=== PATIENT | male | born 1980 | race Caucasian/White ===

== ENCOUNTER 2017-07-28 13:10 | Observation (INO) | payer BC ==
[2017-07-28] MEDS ORDERED: ASPIRIN 81 MG PO STA (13:59)
[2017-07-28] MEDS ORDERED: NITROGLYCERIN OINT 1 INCH/GM PACKET TOPICAL STA (13:59)
--- NOTE | 2017-07-28 14:01 | ED ---
General Adult HPI - General Chief complaint: Chest Pain Stated complaint: heartburn, chest discomfort Time Seen by Provider: 07/28/17 13:26 Source: patient, RN notes reviewed Mode of arrival: wheelchair Limitations: no limitations - History of Present Illness Initial comments: Patient is a pleasant 36-year-old male presenting to the emergency Department with chest discomfort. Onset was last night. Patient took Zantac and Tums without much improvement. Symptoms have been waxing and waning. Discomfort is mild at this time. Discomfort feels like indigestion. No associated dyspnea, nausea, or diaphoresis. - Related Data Home Medications Medication Instructions Recorded Confirmed Cetirizine HCl [Zyrtec] 10 mg PO DAILY PRN 12/19/15 07/28/17 Ranitidine HCl [Zantac] 150 mg PO BID PRN 07/28/17 07/28/17 Allergies Allergy/AdvReac Type Severity Reaction Status Date / Time No Known Allergies Allergy Verified 07/28/17 13:36 Review of Systems ROS Statement: Those systems with pertinent positive or pertinent negative responses have been documented in the HPI. ROS Other: All systems not noted in ROS Statement are negative. Constitutional: Denies: fever Eyes: Denies: eye pain ENT: Denies: ear pain Respiratory: Denies: cough, dyspnea Cardiovascular: Reports: chest pain Endocrine: Denies: fatigue Gastrointestinal: Denies: abdominal pain, nausea, vomiting Genitourinary: Denies: dysuria Musculoskeletal: Denies: back pain Skin: Denies: rash Neurological: Denies: weakness Past Medical History Past Medical History: Asthma History of Any Multi-Drug Resistant Organisms: None Reported Past Surgical History: Adenoidectomy Past Psychological History: No Psychological Hx Reported Smoking Status: Former smoker Past Alcohol Use History: Occasional Past Drug Use History: None Reported General Exam Limitations: no limitations General appearance: alert, in no apparent distress Head exam: Present: atraumatic Eye exam: Present: normal appearance, PERRL ENT exam: Present: normal oropharynx Neck exam: Present: normal inspection Respiratory exam: Present: normal lung sounds bilaterally. Absent: chest wall tenderness Cardiovascular Exam: Present: regular rate, normal rhythm Expanded Peripheral pulses: 2+: Radial (R), Radial (L), Dorsalis Pedis (R), Dorsalis Pedis (L) GI/Abdominal exam: Present: soft. Absent: distended, tenderness Extremities exam: Present: normal inspection. Absent: pedal edema, calf tenderness Neurological exam: Present: alert Psychiatric exam: Present: normal affect, normal mood Skin exam: Present: normal color Course Vital Signs 07/28/17 07/28/17 13:11 15:17 Temperature 97.3 F L Pulse Rate 59 L 67 Respiratory 16 17 Rate Blood Pressure 142/80 115/55 O2 Sat by Pulse 100 100 Oximetry EKG Findings - EKG Comments: EKG Findings:: Sinus bradycardia 58. AK 188. QRS 98. QT 396. QTc 38. Normal axis. Normal QRS. No acute ST change. Medical Decision Making - Medical Decision Making Patient reevaluated and resting comfortably in bed. Patient updated on results and plan. Case was discussed in detail with Dr. Shelby, who will admit his patient. - Lab Data Result diagrams: 07/28/17 13:57 07/28/17 13:57 Lab Results 07/28/17 07/28/17 07/28/17 Range/Units 13:57 13:57 13:57 WBC 6.5 (3.8-10.6) k/uL RBC 4.95 (4.30-5.90) m/uL Hgb 14.6 (13.0-17.5) gm/dL Hct 44.6 (39.0-53.0) % MCV 90.1 (80.0-100.0) fL MCH 29.5 (25.0-35.0) pg MCHC 32.7 (31.0-37.0) g/dL RDW 12.8 (11.5-15.5) % Plt Count 363 (150-450) k/uL Neutrophils % 66 % Lymphocytes % 25 % Monocytes % 6 % Eosinophils % 1 % Basophils % 0 % Neutrophils # 4.3 (1.3-7.7) k/uL Lymphocytes # 1.6 (1.0-4.8) k/uL Monocytes # 0.4 (0-1.0) k/uL Eosinophils # 0.1 (0-0.7) k/uL Basophils # 0.0 (0-0.2) k/uL PT (9.0-12.0) sec INR (<1.2) APTT (22.0-30.0) sec D-Dimer (<0.60) mg/L FEU Sodium 143 (137-145) mmol/L Potassium 4.5 (3.5-5.1) mmol/L Chloride 103 (98-107) mmol/L Carbon Dioxide 27 (22-30) mmol/L Anion Gap 13 mmol/L BUN 14 (9-20) mg/dL Creatinine 0.97 (0.66-1.25) mg/dL Est GFR (MDRD) Af Amer >60 (>60 ml/min/1.73 sqM) Est GFR (MDRD) Non-Af >60 (>60 ml/min/1.73 sqM) Glucose 85 (74-99) mg/dL Calcium 9.9 (8.4-10.2) mg/dL Magnesium 2.0 (1.6-2.3) mg/dL Total Bilirubin 0.4 (0.2-1.3) mg/dL AST 20 (17-59) U/L ALT 29 (21-72) U/L Alkaline Phosphatase 51 (38-126) U/L Total Creatine Kinase 63 (55-170) U/L CK-MB (CK-2) 0.4 (0.0-2.4) ng/mL CK-MB (CK-2) Rel Index 0.6 Troponin I <0.012 (0.000-0.034) ng/mL Total Protein 7.3 (6.3-8.2) g/dL Albumin 4.7 (3.5-5.0) g/dL 07/28/17 Range/Units 13:57 WBC (3.8-10.6) k/uL RBC (4.30-5.90) m/uL Hgb (13.0-17.5) gm/dL Hct (39.0-53.0) % MCV (80.0-100.0) fL MCH (25.0-35.0) pg MCHC (31.0-37.0) g/dL RDW (11.5-15.5) % Plt Count (150-450) k/uL Neutrophils % % Lymphocytes % % Monocytes % % Eosinophils % % Basophils % % Neutrophils # (1.3-7.7) k/uL Lymphocytes # (1.0-4.8) k/uL Monocytes # (0-1.0) k/uL Eosinophils # (0-0.7) k/uL Basophils # (0-0.2) k/uL PT 10.0 (9.0-12.0) sec INR 1.0 (<1.2) APTT 23.9 (22.0-30.0) sec D-Dimer <0.17 (<0.60) mg/L FEU Sodium (137-145) mmol/L Potassium (3.5-5.1) mmol/L Chloride (98-107) mmol/L Carbon Dioxide (22-30) mmol/L Anion Gap mmol/L BUN (9-20) mg/dL Creatinine (0.66-1.25) mg/dL Est GFR (MDRD) Af Amer (>60 ml/min/1.73 sqM) Est GFR (MDRD) Non-Af (>60 ml/min/1.73 sqM) Glucose (74-99) mg/dL Calcium (8.4-10.2) mg/dL Magnesium (1.6-2.3) mg/dL Total Bilirubin (0.2-1.3) mg/dL AST (17-59) U/L ALT (21-72) U/L Alkaline Phosphatase (38-126) U/L Total Creatine Kinase (55-170) U/L CK-MB (CK-2) (0.0-2.4) ng/mL CK-MB (CK-2) Rel Index Troponin I (0.000-0.034) ng/mL Total Protein (6.3-8.2) g/dL Albumin (3.5-5.0) g/dL - Radiology Data Radiology results: image reviewed (Chest x-ray shows no acute process.) Disposition Clinical Impression: Chest pain Disposition: ADMITTED IP TO THIS [facility] Referrals: Hira Shelby DO [Primary Care Provider] - 1-2 days Decision Time: 16:11
[2017-07-28 14:09] LABS: Basophils % (A) 0 %; Eosinophils # (A) 0.1 k/uL (0-0.7); Eosinophils % (A) 1 %; HCT 44.6 % (39.0-53.0); HGB 14.6 gm/dL (13.0-17.5); Lymphocytes # (A) 1.6 k/uL (1.0-4.8); Lymphocytes % (A) 25 %; MCH 29.5 pg (25.0-35.0); MCHC 32.7 g/dL (31.0-37.0); MCV 90.1 fL (80.0-100.0); Mean Platelet Volume 6.4; Monocytes # (A) 0.4 k/uL (0-1.0); Monocytes % (A) 6 %; Neutrophils # (A) 4.3 k/uL (1.3-7.7); Neutrophils % (A) 66 %; Platelet Count 363 k/uL (150-450); RBC 4.95 m/uL (4.30-5.90); RDW 12.8 % (11.5-15.5); WBC 6.5 k/uL (3.8-10.6)
[2017-07-28 14:16] LABS: ALT 29 U/L (21-72); AST 20 U/L (17-59); Albumin 4.7 g/dL (3.5-5.0); Alkaline Phosphatase 51 U/L (38-126); Anion Gap 13 mmol/L; Blood Urea Nitrogen 14 mg/dL (9-20); Calcium 9.9 mg/dL (8.4-10.2); Carbon Dioxide 27 mmol/L (22-30); Chloride 103 mmol/L (98-107); Glucose 85 mg/dL (74-99); Potassium 4.5 mmol/L (3.5-5.1); Sodium 143 mmol/L (137-145); Total Bilirubin 0.4 mg/dL (0.2-1.3); Total Protein 7.3 g/dL (6.3-8.2)
[2017-07-28 14:24] LABS: Creatine Kinase 63 U/L (55-170); D-Dimer <0.17 mg/L FEU (<0.60); Partial Thromboplastin Time 23.9 sec (22.0-30.0)
[2017-07-28 14:37] LABS: Creatine Kinase MB 0.4 ng/mL (0.0-2.4); Troponin I <0.012 ng/mL (0.000-0.034)
--- NOTE | 2017-07-28 14:47 | XR ---
EXAMINATION TYPE: XR chest 2V DATE OF EXAM: 07/28/2017 COMPARISON: None HISTORY: 36-year-old male with chest pain TECHNIQUE: PA and lateral views FINDINGS: Heart normal size. Aorta and pulmonary vasculature within normal limits. Strandy areas of atelectasis . No consolidation or pleural effusion. IMPRESSION: No acute cardiopulmonary process.
[2017-07-28] MEDS ORDERED: NITROGLYCERIN SL TABS 0.4 MG TAB SUBLINGUAL PRN (16:11)
[2017-07-28] MEDS ORDERED: MAG HYDROX/AL HYDROX/SIMETH 30 ML, HYOSCYAMINE ELIXIR 10 ML, CIMETIDINE HCL 300 MG, LID... PO STA ×4 (16:15)
[2017-07-28] MEDS: NITROGLYCERIN OINT 1 INCH/GM PACKET TOPICAL SCH ×2 (20:20→22:41)
[2017-07-28] MEDS ORDERED: ONDANSETRON 4 MG TAB PO PRN (20:42)
[2017-07-28 20:44] LABS: Creatine Kinase 53 U/L (55-170)
[2017-07-28] MEDS ORDERED: ACETAMINOPHEN TAB 500 MG TAB PO PRN (20:45)
[2017-07-28 20:57] LABS: Creatine Kinase MB 0.3 ng/mL (0.0-2.4); Troponin I <0.012 ng/mL (0.000-0.034)
[2017-07-28] MEDS: FAMOTIDINE 20 MG TAB PO SCH (21:16)
[2017-07-28] MEDS: HYDROmorphone 0.5 MG/0.5 ML SYRINGE IVP PRN (21:16)
[2017-07-29] MEDS: HYDROmorphone 0.5 MG/0.5 ML SYRINGE IVP PRN (03:15)
[2017-07-29 03:45] LABS: Cholesterol 160 mg/dL (<200); HDL Cholesterol 33 mg/dL (40-60); LDL Cholesterol,Calculated 96 mg/dL (0-99); Triglycerides 154 mg/dL (<150)
[2017-07-29 03:51] LABS: Creatine Kinase 48 U/L (55-170)
[2017-07-29 04:04] LABS: Creatine Kinase MB 0.3 ng/mL (0.0-2.4); Troponin I <0.012 ng/mL (0.000-0.034)
[2017-07-29] MEDS: NITROGLYCERIN OINT 1 INCH/GM PACKET TOPICAL SCH ×2 (05:38→13:53)
[2017-07-29 08:08] VITALS: RESP 16
[2017-07-29] MEDS ORDERED: ASPIRIN 325 MG TAB PO SCH (09:00)
--- NOTE | 2017-07-29 10:39 | CONS ---
CONSULTATION CHIEF COMPLAINT: Chest pain. This is a 36-year-old gentleman with history of GERD, who presented to hospital complaining of mild discomfort involving the epigastric area that radiated to his chest. It is not associated with diaphoresis and unrelated to exertion and gradually the pain resolved. He has had 3 sets of cardiac enzymes which are all within normal limits and the EKG does not reveal ischemic changes. PAST MEDICAL HISTORY: Significant for GERD. MEDICATIONS: Medications at home include Zantac and Zyrtec. ALLERGIES: No known drug allergies. FAMILY HISTORY: Negative for premature coronary artery disease. SOCIAL HISTORY: Negative for smoking, EtOH abuse, or drug abuse. REVIEW OF SYSTEMS: HEENT is unremarkable. CARDIAC: As described above. RESPIRATORY: Negative. GI: Negative. GENITOURINARY: Negative. ALLERGY/MUSCULOSKELETAL: Significant for arthritis. PSYCHOSOCIAL: Negative. ENDOCRINE: Negative. HEMATOLOGICAL: Negative. DERM: Negative. CONSTITUTIONAL: Negative. ONCOLOGICAL: Negative. The rest of the system review is not relevant. PHYSICAL EXAM: Comfortable at rest. Vital signs are stable. There is no jugular venous distention. Carotid upstroke is normal. There is no bruit. Chest exam reveals good air entry bilaterally. Heart exam reveals first and second heart sounds. No gallop. No murmur. No rub. Abdomen is soft, nontender. Examination of extremities did not reveal any edema. Peripheral pulses are felt. AT RISK PARAPROFESSIONAL exam did not reveal focal neurological deficits. LABS: Show that the hemoglobin is 14.6, three sets of tropes are negative. Creatinine is 0.9. Hemoglobin is normal. ASSESSMENT: Atypical chest pain. PLAN: Patient will undergo a stress test and echocardiogram today. If this is negative, he will be discharged home. MMODL / IJN: [id number] /
--- NOTE | 2017-07-29 11:03 | ECHOS ---
STRESS ECHOCARDIOGRAM DATE OF SERVICE: 07/29/2017 INDICATIONS: Chest pain. MEDICATIONS: Zyrtec, Zantac. BASELINE HEART RATE: 76 BASELINE BLOOD PRESSURE: 103/47 MAXIMUM HEART RATE: 171 MAXIMUM BLOOD PRESSURE: 185/59 85% MPHR: 156 100% MPHR: 184 METS: 11 MAXIMUM STAGE REACHED: IV TOTAL EXERCISE TIME: 10 minutes CLINICAL INFORMATION: Baseline EKG shows sinus rhythm, normal axis, normal intervals. The patient exercised on Lico protocol for a total of 10 minutes achieving 11 METS; 93% of predicted maximal heart rate without chest pain or diagnostic ST-segment depression. Baseline echo shows normal left ventricular size wall motion systolic function. Postexercise, there is normal hyperdynamic response of all segments of myocardium noted. CONCLUSIONS: 1. Excellent exercise tolerance. 2. Negative stress test by EKG criteria. 3. Negative stress echo. MAURO / GUSTAVON: [id number] /
[2017-07-29] MEDS: FAMOTIDINE 20 MG TAB PO SCH (11:43)
[2017-07-29 12:02] VITALS: BP 134/71; PULSE 71; TEMP 97.5
[2017-07-29] MEDS ORDERED: HYDROmorphone 2 MG TAB PO PRN (14:33)
--- NOTE | 2017-08-03 15:17 | ECHOF ---
Referral Reason:chest pain MEASUREMENTS -------- HEIGHT: 185.4 cm WEIGHT: 113.4 kg BP: 127/68 RVIDd: 3.0 cm (< 3.3) IVSd: 1.2 cm (0.6 - 1.1) LVIDd: 4.8 cm (3.9 - 5.3) LVPWd: 1.1 cm (0.6 - 1.1) IVSs: 1.7 cm LVIDs: 3.4 cm LVPWs: 1.5 cm LA Diam: 3.3 cm (2.7 - 3.8) LAESV Index (A-L): 20.04 ml/m Ao Diam: 3.6 cm (2.0 - 3.7) AV Cusp: 2.8 cm (1.5 - 2.6) MV EXCURSION: 18.525 mm (> 18.000) MV EF SLOPE: 141 mm/s (70 - 150) EPSS: 0.3 cm MV E Tonio: 0.71 m/s MV DecT: 268 ms MV A Tonio: 0.54 m/s MV E/A Ratio: 1.31 FINDINGS -------- Sinus rhythm. This was a technically good study. The left ventricular size is normal. There is borderline concentric left ventricular hypertrophy. Overall left ventricular systolic function is normal with, an EF between 60 - 65 %. The right ventricle is normal in size. Normal LA size by volume 22+/-6 ml/m2. The right atrium is normal in size. The aortic valve is trileaflet and appears structurally normal. Trace to mild aortic regurgitation. There is trace mitral regurgitation. Trace tricuspid regurgitation present. Trace/mild (physiologic) pulmonic regurgitation. The aortic root size is normal. Normal inferior vena cava with normal inspiratory collapse consistent with estimated right atrial pre ssure of 5 mmHg. There is no pericardial effusion. CONCLUSIONS -------- 1. Sinus rhythm. 2. This was a technically good study. 3. The left ventricular size is normal. 4. There is borderline concentric left ventricular hypertrophy. 5. Overall left ventricular systolic function is normal with, an EF between 60 - 65 %. 6. The right ventricle is normal in size. 7. Normal LA size by volume 22+/-6 ml/m2. 8. The right atrium is normal in size. 9. The aortic valve is trileaflet and appears structurally normal. 10. Trace to mild aortic regurgitation. 11. There is trace mitral regurgitation. 12. Trace tricuspid regurgitation present. 13. Trace/mild (physiologic) pulmonic regurgitation. 14. The aortic root size is normal. 15. Normal inferior vena cava with normal inspiratory collapse consistent with estimated right atrial pressure of 5 mmHg. 16. There is no pericardial effusion. EEO OFFICER: Nirali Cedeño RDCS
== END 2017-07-29 14:30 | disposition home or self-care (01) ==
LOC: EC 13:10 → 3OBS 16:12
PROVIDERS: ADMIT Family Medicine; ATTEND Family Medicine
DX: R07.89 Other chest pain (principal); K21.9 Gastro-esophageal reflux disease without esophagitis; Z79.899 Other long term (current) drug therapy; Z87.891 Personal history of nicotine dependence; Z87.09 Personal history of other diseases of the respiratory system
CPT/HCPCS: 99285 ×2; 96374; 96376; 36415; 93005; 93017; 93306; 93350; 85379; 80061; 80053; 82550 ×2; 82553 ×2; 83735; 84484 ×2; 85025; 85610; 85730; 71046; G0378 ×2; J1170 ×2

== ENCOUNTER 2017-08-22 11:29 | Day surgery (SDC) | payer BC ==
[2017-08-18 12:42] VITALS: BMI 33.0
[~2017-08-22 11:29] MED LIST: LACTATED RINGERS 1,000 ML IV SCH
[2017-08-22 12:39] VITALS: TEMP 98.1
[2017-08-22] MEDS ORDERED: LIDOCAINE 1% 20 ML VIAL (10MG/ML) FOR IV START INTRADERMA ONE (12:45)
[2017-08-22] MEDS ORDERED: PROPOFOL 10 MG/ML 20 ML VIAL IV ONE (12:48)
[2017-08-22] MEDS ORDERED: LIDOCAINE 1% INJ 10MG/ML (20 ML MDV) ONE (12:48)
--- NOTE | 2017-08-22 12:53 | P.GSHP ---
History of Present Illness H&P Date: 08/22/17 Chief Complaint: GERD This a 36-year-old male referred from Dr. Shelby. Patient points of GERD. He presents today for EGD. Past Medical History Past Medical History: Asthma, GERD/Reflux Additional Past Medical History / Comment(s): HX OF KIDNEY STONE, TENDONITIS IN ELBOW, HOSPITALIZED AT [facility] 07/28/17-07/29/17 FOR CHEST PAIN AND STATES CARDIAC TESTING DONE History of Any Multi-Drug Resistant Organisms: None Reported Past Surgical History: Adenoidectomy Additional Past Surgical History / Comment(s): VASECTOMY Past Anesthesia/Blood Transfusion Reactions: No Reported Reaction Past Psychological History: No Psychological Hx Reported Additional Psychological History / Comment(s): . Smoking Status: Former smoker Past Alcohol Use History: Occasional Additional Past Alcohol Use History / Comment(s): SMOKED SOCIALLY STARTED AT AGE 18 SMOKED 1 YEAR Past Drug Use History: None Reported - Past Family History Mother Family Medical History: GERD/Reflux Father Family Medical History: Diabetes Mellitus, Hyperlipidemia Medications and Allergies Home Medications Medication Instructions Recorded Confirmed Type Loratadine [Claritin] 10 mg PO DAILY PRN 08/18/17 08/22/17 History Omeprazole/Sodium Bicarbonate 1 each PO DAILY 08/18/17 08/22/17 History [Omeppi 40 mg-1,100 mg Capsule] Allergies Allergy/AdvReac Type Severity Reaction Status Date / Time No Known Allergies Allergy Verified 08/18/17 12:34 Surgical - Exam Vital Signs Temp Pulse Resp BP Pulse Ox 98.1 F 68 16 149/91 100 08/22/17 12:37 08/22/17 12:37 08/22/17 12:37 08/22/17 12:37 08/22/17 12:37 - General well developed, no distress - Eyes PERRL - ENT normal pinna - Neck no masses - Respiratory normal expansion - Cardiovascular Rhythm: regular - Abdomen Abdomen: soft, non tender Assessment and Plan Assessment: GERD. We'll perform EGD.
--- NOTE | 2017-08-22 13:08 | P.OP ---
Date of Procedure: 08/22/17 Preoperative Diagnosis: GERD Postoperative Diagnosis: Antral gastritis Small sliding hiatal hernia Minimal esophagitis Procedure(s) Performed: EGD Anesthesia: MAC Surgeon: Gavin Meza Pathology: other (Antrum, esophagus) Condition: stable Disposition: PACU Description of Procedure: The patient's placed on the endoscopy table in the lateral position. He received IV sedation. The gastroscope placed oropharynx and passed into the esophagus and into the stomach. The scope was then placed through the pylorus. The first and second portion of the duodenum appeared normal. Scope was then brought back the antrum this was mildly inflamed. A biopsy was performed. The scope was then retroflexed remainder stomach appeared normal. The GE junction was at 38 cm. There was a very small sliding hiatal hernia. The distal esophagus appeared minimally inflamed a biopsies performed. The proximal esophagus appeared normal. Scope was withdrawn for patient.
[2017-08-22 13:29] VITALS: BP 106/65; PULSE 64; RESP 16
== END 2017-08-22 13:46 | disposition home or self-care (01) ==
LOC: ORWHC2ENDO 11:29
PROVIDERS: ATTEND Surgery
DX: K21.0 Gastro-esophageal reflux disease with esophagitis (principal); K31.9 Disease of stomach and duodenum, unspecified; K29.70 Gastritis, unspecified, without bleeding; K44.9 Diaphragmatic hernia without obstruction or gangrene; J45.909 Unspecified asthma, uncomplicated; Z87.891 Personal history of nicotine dependence
CPT/HCPCS: 88305; 43239; J2001; J2704

== ENCOUNTER → 2021-08-04 | Outpatient (CLI) | payer BC ==
--- NOTE | 2021-08-04 11:21 | CT ---
EXAMINATION TYPE: CT abdomen pelvis wo con DATE OF EXAM: 08/04/2021 COMPARISON: No previous CT scan is available for comparison HISTORY: hematuria CT DLP: 993.0 mGycm Automated exposure control for dose reduction was used. TECHNIQUE: Helical acquisition of images was performed from the lung bases through the pelvis. FINDINGS: LUNG BASES: No significant abnormality is appreciated. LIVER/GB: No significant abnormality is appreciated. PANCREAS: No significant abnormality is seen. SPLEEN: No significant abnormality is seen. ADRENALS: No significant abnormality is seen. KIDNEYS: Few nonobstructing calculi are seen in the left upper renal pole measuring up to 3 mm. A 2 m m nonobstructing stone is seen at the midpole of right kidney. Unremarkable kidneys otherwise. No hyd roureter or hydronephrosis. FREE AIR: No free air is visualized RETROPERITONEAL ADENOPATHY: None visualized REPRODUCTIVE ORGANS: No significant abnormality is seen URINARY BLADDER: Incompletely distended urinary bladder. No definite radiodense calculi. PELVIC ADENOPATHY: None visualized. OSSEOUS STRUCTURES: No significant abnormality is seen. BOWEL: No significant abnormality is seen. OTHER: Bilateral fat-containing inguinal hernias, slightly larger on the left side. IMPRESSION: TINY BILATERAL NONOBSTRUCTING RENAL CALCULI DESCRIBED ABOVE. NO HYDROURETER OR HYDRONEPHROSIS. NO DEFINITE RENAL LESION BY THIS NONENHANCED CT SCAN. CONSIDERING THE PATIENT'S PRESENTATION OF HEMATURI A, FURTHER CT UROGRAM CAN BE CONSIDERED. OTHER INCIDENTAL FINDINGS DESCRIBED ABOVE.
== END | disposition home or self-care (01) ==
LOC: RADCTMAIN 08:58
PROVIDERS: ATTEND Family Medicine
DX: N20.0 Calculus of kidney (principal)
CPT/HCPCS: 74176

== ENCOUNTER → 2023-06-21 | Outpatient (CLI) | payer OTHER ==
--- NOTE | 2023-06-21 16:44 | XR ---
EXAMINATION TYPE: XR lumbar spine 2 or 3V DATE OF EXAM: 06/21/2023 Comparison: None Clinical History: 42-year-old male M54.50, S39.012A Findings: 5 lumbar type vertebral bodies. Vertebral body heights are preserved and alignment is maintained. Dis c interspaces are also preserved. Impression: No vertebral compression collapse or malalignment. Intervertebral disc spaces are also preserved.
== END | disposition home or self-care (01) ==
LOC: RADXRMAIN 16:09
PROVIDERS: ATTEND Emergency Medicine
DX: S39.012A Strain of muscle, fascia and tendon of lower back, initial encounter (principal); X58.XXXA Exposure to other specified factors, initial encounter
CPT/HCPCS: 72100